=== PATIENT | male | born 1965 | race African-American/Black ===

== ENCOUNTER 2017-02-15 10:57 | Emergency (ER) | payer SELFPAY ==
[2017-02-15] MEDS ORDERED: Naproxen 500 MG TAB ONE (13:49)
[2017-02-15] MEDS ORDERED: AMOXicillin 250 MG CAP ONE (13:49)
[2017-02-15] MEDS ORDERED: Oxymetazoline HCl 0.05% ( 15 ML ) ONE (13:49)
== END 2017-02-15 13:55 | disposition home or self-care (01) ==
LOC: MADERS 10:57
DX: J01.90 Acute sinusitis, unspecified (principal); B19.20 Unspecified viral hepatitis C without hepatic coma; I10 Essential (primary) hypertension; M19.90 Unspecified osteoarthritis, unspecified site; F17.210 Nicotine dependence, cigarettes, uncomplicated; G56.00 Carpal tunnel syndrome, unspecified upper limb; Z79.1 Long term (current) use of non-steroidal anti-inflammatories (NSAID)
CPT/HCPCS: 99283

== ENCOUNTER 2017-05-06 15:17 | Emergency (ER) | payer SELFPAY | END 2017-05-06 16:11 | disposition home or self-care (01) | LOC: MADERS 15:17 | DX: M77.9 Enthesopathy, unspecified (principal); I10 Essential (primary) hypertension; F17.210 Nicotine dependence, cigarettes, uncomplicated | CPT/HCPCS: 99283 ==

== ENCOUNTER 2017-10-30 12:44 | Emergency (ER) | payer SELFPAY ==
[2017-10-30] MEDS ORDERED: Diazepam 5 MG TAB ONE (13:13)
[2017-10-30] MEDS ORDERED: Naproxen 500 MG TAB ONE (13:13)
[2017-10-30] MEDS ORDERED: HYDROcodone/Acetaminophen 10/325 mg Tablet ONE (13:13)
--- NOTE | 2017-10-30 13:33 | RAD ---
TWO VIEWS RIGHT HIP: HISTORY: Right hip pain without trauma. AP and frogleg views right hip were obtained. Two views right hip demonstrate no evidence of right hip fractures, subluxations, or bony lesions. IMPRESSION: Normal 2 views right hip. POS: [facility]
== END 2017-10-30 13:56 | disposition home or self-care (01) ==
LOC: MADERS 12:44
DX: M62.838 Other muscle spasm (principal); I10 Essential (primary) hypertension; M19.90 Unspecified osteoarthritis, unspecified site; Z86.19 Personal history of other infectious and parasitic diseases; F17.210 Nicotine dependence, cigarettes, uncomplicated

== ENCOUNTER 2017-11-01 00:07 | Emergency (ER) | payer SELFPAY ==
[2017-11-01] MEDS ORDERED: Ketorolac Tromethamine 60 MG/2 ML VIAL ONE (00:30)
[2017-11-01] MEDS ORDERED: HYDROcodone/Acetaminophen 10/325 mg Tablet ONE (00:30)
== END 2017-11-01 00:54 | disposition home or self-care (01) ==
LOC: MADERS 00:07
DX: M54.5 Low back pain (principal); I10 Essential (primary) hypertension; G89.29 Other chronic pain; B19.20 Unspecified viral hepatitis C without hepatic coma; M19.90 Unspecified osteoarthritis, unspecified site; F17.210 Nicotine dependence, cigarettes, uncomplicated
CPT/HCPCS: 96372; J1885

== ENCOUNTER 2017-11-06 09:42 | Emergency (ER) | payer SELFPAY | END 2017-11-06 12:57 | disposition home or self-care (01) | LOC: MADERS 09:42 | DX: M79.661 Pain in right lower leg (principal); M19.90 Unspecified osteoarthritis, unspecified site; I10 Essential (primary) hypertension; G89.29 Other chronic pain; F17.210 Nicotine dependence, cigarettes, uncomplicated | CPT/HCPCS: 99283 ==

== ENCOUNTER 2018-03-30 08:40 | Emergency (ER) | payer SELFPAY ==
[2018-03-30] MEDS ORDERED: Lidocaine 1% w/Epinephrine 1:100K 30 ML VIAL ONE (09:05)
== END 2018-03-30 09:25 | disposition home or self-care (01) ==
LOC: MADERS 08:40
DX: L05.91 Pilonidal cyst without abscess (principal); I10 Essential (primary) hypertension; F41.9 Anxiety disorder, unspecified; F31.9 Bipolar disorder, unspecified; F20.9 Schizophrenia, unspecified; F17.210 Nicotine dependence, cigarettes, uncomplicated
CPT/HCPCS: J2001

== ENCOUNTER 2018-05-30 23:17 | Emergency (ER) | payer SELFPAY ==
[2018-05-30] MEDS ORDERED: Sodium Chloride 0.9% 1,000 ML ONE (23:41)
[2018-05-30 23:49] LABS: #Basophils 0.2 thou/uL (0.0-0.2); #Eosinphils 0.2 thou/uL (0.0-0.7); #Lymphocytes 3.2 thou/uL (1.20-3.40); #Monocytes 0.4 thou/uL (0.11-0.59); #Neutrophils 3.3 thou/uL (1.40-6.50); %Basophils 2.7 % (0.0-1.0); %Eosinophils 3.3 % (0.0-10.0); %Lymphocytes 43.4 % (21.0-51.0); %Neutrophils 44.6 % (42.0-75.0); Hemoglobin 13.4 g/dL (14.0-18.0); Mean Corpuscular HGB CONC 32.9 g/dL (32.0-36.0); Mean Corpuscular Volume 88.3 fL (78.0-98.0); Mean Platelet Volume 7.2 fL (7.4-10.4); Platelet Count 237 thou/uL (130-400); RBC Distribution Width 11.6 % (11.5-14.5); Red Blood Cell (RBC) Count 4.61 mill/uL (4.70-6.10); White Blood Cell (WBC) Count 7.3 thou/uL (4.8-10.8)
[2018-05-30 23:51] LABS: Manual Diff?? NO
[2018-05-31 00:03] LABS: ALT (SGPT) 24 U/L (8-55); AST (SGOT) 27 U/L (5-34); Albumin 3.7 g/dL (3.5-5.0); Alcohol 208 mg/dL (Less than 10); Alkaline Phosphatase 53 U/L (40-150); Anion Gap 19 mmol/L (10-20); BUN (Urea Nitrogen) 25 mg/dL (8.4-25.7); Bilirubin, Total 0.2 mg/dL (0.2-1.2); Calc. Creatinine Clearance 0 mL/min (70-130); Calcium 9.1 mg/dL (7.8-10.44); Carbon Dioxide 19 mmol/L (22-29); Chloride 111 mmol/L (98-107); Estimated GFR-MDRD 61; Globulin 2.5 g/dL (2.4-3.5); Glucose 111 mg/dL (70-105); Potassium 3.8 mmol/L (3.5-5.1); Protein, Total 6.2 g/dL (6.0-8.3); Sodium 145 mmol/L (136-145)
--- NOTE | 2018-05-31 00:04 | RAD ---
PORTABLE CHEST: 05/30/2018 PROVIDED CLINICAL HISTORY: FINDINGS: Chest pain. COMPARISON: 04/08/2013 FINDINGS: Cardiac and mediastinal silhouette are unchanged in appearance with situs inversus redemonstrated. N o focal consolidation, pleural fluid, or pneumothorax apparent. IMPRESSION: No evidence for an acute cardiopulmonary process. POS: [facility]
== END 2018-05-31 01:25 | disposition home or self-care (01) ==
LOC: MADERS 23:17
DX: F10.129 Alcohol abuse with intoxication, unspecified (principal); R07.9 Chest pain, unspecified; I10 Essential (primary) hypertension; M19.90 Unspecified osteoarthritis, unspecified site; F41.9 Anxiety disorder, unspecified; F31.9 Bipolar disorder, unspecified; F20.9 Schizophrenia, unspecified; F17.210 Nicotine dependence, cigarettes, uncomplicated; Z71.6 Tobacco abuse counseling; Y90.7 Blood alcohol level of 200-239 mg/100 ml
CPT/HCPCS: 71045; 80053; 80307; 84484; 85025; 93005; 94760; 96360; 96361; 99406; J7050

== ENCOUNTER 2018-12-25 11:32 | Emergency (ER) | payer SELFPAY ==
[2018-12-25] MEDS ORDERED: HyperTET 250 UNITS/ML 1 ML SYRINGE ONE (11:53)
[2018-12-25] MEDS ORDERED: Ibuprofen 800 MG TAB ONE (11:53)
[2018-12-25] MEDS ORDERED: Penicillin V Potassium 250 MG TAB ONE (11:53)
== END 2018-12-25 12:01 | disposition home or self-care (01) ==
LOC: MADERS 11:32
DX: K02.9 Dental caries, unspecified (principal); K74.60 Unspecified cirrhosis of liver; F41.9 Anxiety disorder, unspecified; F31.9 Bipolar disorder, unspecified; F20.9 Schizophrenia, unspecified; I10 Essential (primary) hypertension; M19.90 Unspecified osteoarthritis, unspecified site; F17.210 Nicotine dependence, cigarettes, uncomplicated; Z71.6 Tobacco abuse counseling
CPT/HCPCS: 99406; J1670

== ENCOUNTER 2019-04-07 22:12 | Emergency (ER) | payer SELFPAY ==
[2019-04-07] MEDS ORDERED: Cyclobenzaprine 10 MG TAB ONE (22:47)
[2019-04-07] MEDS ORDERED: Ibuprofen 800 MG TAB ONE (22:47)
== END 2019-04-07 23:05 | disposition home or self-care (01) ==
LOC: MADERS 22:12
DX: M62.830 Muscle spasm of back (principal); I10 Essential (primary) hypertension; M19.90 Unspecified osteoarthritis, unspecified site; F17.210 Nicotine dependence, cigarettes, uncomplicated; W18.30XA Fall on same level, unspecified, initial encounter
CPT/HCPCS: 99283

== ENCOUNTER 2019-05-17 22:56 | Emergency (ER) | payer SELFPAY ==
[2019-05-17 23:55] LABS: Band 1 % (5-11); Eosinophils 3 % (0-10); Hemoglobin 12.9 g/dL (14.0-18.0); Lymphocytes 44 % (21-51); MDiff Complete? YES; Mean Corpuscular HGB CONC 31.2 g/dL (32.0-36.0); Mean Corpuscular Hemoglobin 28.6 pg (27.0-31.0); Mean Corpuscular Volume 91.6 fL (78.0-98.0); Mean Platelet Volume 7.4 fL (7.4-10.4); Monocytes 4 % (0-10); Neutrophil 48 % (42-75); Platelet Count 252 thou/uL (130-400); RBC Distribution Width 12.3 % (11.5-14.5); Red Blood Cell (RBC) Count 4.51 mill/uL (4.70-6.10); White Blood Cell (WBC) Count 7.4 thou/uL (4.8-10.8)
[2019-05-18 00:02] LABS: ALT (SGPT) 25 U/L (8-55); AST (SGOT) 26 U/L (5-34); Albumin 3.5 g/dL (3.5-5.0); Alkaline Phosphatase 50 U/L (40-110); Anion Gap 15 mmol/L (10-20); BUN (Urea Nitrogen) 18 mg/dL (8.4-25.7); Bilirubin, Total Less than 0.2 mg/dL (0.2-1.2); Calc. Creatinine Clearance 0 mL/min (70-130); Calcium 8.1 mg/dL (7.8-10.44); Carbon Dioxide 21 mmol/L (22-29); Chloride 114 mmol/L (98-107); Estimated GFR-MDRD 62; Globulin 2.6 g/dL (2.4-3.5); Glucose 96 mg/dL (70-105); Magnesium 2.1 mg/dL (1.6-2.6); Potassium 3.8 mmol/L (3.5-5.1); Protein, Total 6.1 g/dL (6.0-8.3); Sodium 146 mmol/L (136-145)
--- NOTE | 2019-05-18 00:02 | RAD ---
EXAM: CHEST ONE VIEW HISTORY: Chest pain COMPARISON: 05/30/2018 FINDINGS: Cardiac silhouette is within normal limits with situs inversus redemonstrated. The pulmonary vasculat ure is within normal limits. The lungs are clear. Degenerative changes are again seen in the spine. Chest is stable from prior exam. IMPRESSION: No acute cardiopulmonary process.
[2019-05-18 00:04] LABS: Acetaminophen Less than 6.0 mcg/mL (10.0-30.0); Alcohol 146 mg/dL (Less than 10); Salicylate Less than 8.0 mg/dL (15.0-30.0)
[2019-05-18] MEDS ORDERED: Sodium Chloride 0.9% 500 ML ONE (00:12)
[2019-05-18 01:13] LABS: Cocaine Metabolite Screen Detected (NotDetected); Phencyclidine (PCP) Not Detected (NotDetected); THC/Cannabinoid Screen Not Detected (NotDetected)
[2019-05-18 01:14] LABS: Amphetamine Not Detected (NotDetected); Barbiturates Screen Not Detected (NotDetected); Benzodiazepine Screen Not Detected (NotDetected); Medtox Control Line Valid? VALID (VALID); Methadone Not Detected (NotDetected); Methamphetamine Not Detected (NotDetected); Opiate Screen Not Detected (NotDetected); Oxycodone Screen Not Detected (NotDetected); Tricyclic Screen Not Detected (NotDetected)
== END 2019-05-18 02:52 | disposition short-term general hospital (02) ==
LOC: MADERS 22:56
DX: R07.9 Chest pain, unspecified (principal); E87.1 Hypo-osmolality and hyponatremia; F10.129 Alcohol abuse with intoxication, unspecified; F14.10 Cocaine abuse, uncomplicated; F31.9 Bipolar disorder, unspecified; F20.9 Schizophrenia, unspecified; F41.9 Anxiety disorder, unspecified; F17.210 Nicotine dependence, cigarettes, uncomplicated; K74.60 Unspecified cirrhosis of liver; M19.90 Unspecified osteoarthritis, unspecified site; Z86.19 Personal history of other infectious and parasitic diseases; Y90.6 Blood alcohol level of 120-199 mg/100 ml
CPT/HCPCS: 36415; 71045; 80053; 80306; 80307; 82553; 83735; 83880; 84484; 85025; 93005; 96360; J7050

== ENCOUNTER 2019-06-18 07:19 | Emergency (ER) | payer SELFPAY ==
[2019-06-18] MEDS ORDERED: Ibuprofen 800 MG TAB ONE (08:14)
== END 2019-06-18 08:32 | disposition home or self-care (01) ==
LOC: MADERS 07:19
DX: J06.9 Acute upper respiratory infection, unspecified (principal); I10 Essential (primary) hypertension; M19.90 Unspecified osteoarthritis, unspecified site; F41.9 Anxiety disorder, unspecified; F31.9 Bipolar disorder, unspecified; F20.9 Schizophrenia, unspecified; F17.210 Nicotine dependence, cigarettes, uncomplicated; Z79.82 Long term (current) use of aspirin
CPT/HCPCS: 87081; 87430; 99283

== ENCOUNTER 2019-07-19 10:22 | Emergency (ER) | payer SELFPAY ==
[2019-07-19] MEDS ORDERED: Lidocaine 1% 20 ML MDV ONE (11:03)
[2019-07-19] MEDS ORDERED: cefTRIAXone\\ROCEPHIN 1 GM VIAL ONE (11:03)
== END 2019-07-19 11:25 | disposition home or self-care (01) ==
LOC: MADERS 10:22
DX: L03.114 Cellulitis of left upper limb (principal); L03.211 Cellulitis of face; K02.9 Dental caries, unspecified; I10 Essential (primary) hypertension; M19.90 Unspecified osteoarthritis, unspecified site; F41.9 Anxiety disorder, unspecified; F31.9 Bipolar disorder, unspecified; F20.9 Schizophrenia, unspecified; F17.210 Nicotine dependence, cigarettes, uncomplicated; Z79.82 Long term (current) use of aspirin
CPT/HCPCS: 96372; 99283; J0696; J2001

== ENCOUNTER 2019-09-03 14:30 | Emergency (ER) | payer SELFPAY | END 2019-09-03 15:28 | disposition short-term general hospital (02) | LOC: MADERS 14:30 | DX: M79.662 Pain in left lower leg (principal); F41.9 Anxiety disorder, unspecified; F31.9 Bipolar disorder, unspecified; K74.60 Unspecified cirrhosis of liver; F20.9 Schizophrenia, unspecified; F17.210 Nicotine dependence, cigarettes, uncomplicated; I10 Essential (primary) hypertension | CPT/HCPCS: 99284 ==

== ENCOUNTER 2019-12-22 10:43 | Emergency (ER) | payer SELFPAY | END 2019-12-22 11:31 | disposition home or self-care (01) | LOC: MADERS 10:43 | DX: L03.114 Cellulitis of left upper limb (principal); F41.9 Anxiety disorder, unspecified; F31.9 Bipolar disorder, unspecified; F20.9 Schizophrenia, unspecified; F17.210 Nicotine dependence, cigarettes, uncomplicated | CPT/HCPCS: 99283 ==

== ENCOUNTER 2020-02-04 03:09 | Emergency (ER) | payer SELFPAY ==
[2020-02-04] MEDS ORDERED: Ibuprofen 800 MG TAB ONE (03:30)
[2020-02-04] MEDS ORDERED: Dexamethasone 4 mg/ml Vial ONE (03:30)
[2020-02-04] MEDS ORDERED: AMOXicillin 250 MG CAP ONE (03:30)
[2020-02-04] MEDS ORDERED: Acetaminophen 500 MG TAB ONE (03:31)
== END 2020-02-04 03:54 | disposition home or self-care (01) ==
LOC: MADERS 03:09
DX: J02.0 Streptococcal pharyngitis (principal); K04.7 Periapical abscess without sinus; K02.9 Dental caries, unspecified; I10 Essential (primary) hypertension; M19.90 Unspecified osteoarthritis, unspecified site; F41.9 Anxiety disorder, unspecified; F31.9 Bipolar disorder, unspecified; F20.9 Schizophrenia, unspecified; F17.210 Nicotine dependence, cigarettes, uncomplicated; K74.60 Unspecified cirrhosis of liver
CPT/HCPCS: 99283; J1100

== ENCOUNTER 2020-04-24 12:39 | Emergency (ER) | payer SELFPAY ==
[2020-04-25 02:56] LABS: SARS-CoV-2 MS2 Positive; SARS-CoV-2 N Gene Positive; SARS-CoV-2 by NAA DETECTED (NotDetected); SARS-CoV-2 orf1ab Positive
== END 2020-04-24 13:50 | disposition home or self-care (01) ==
LOC: MADERS 12:39
DX: U07.1 COVID-19 (principal); I10 Essential (primary) hypertension; F17.210 Nicotine dependence, cigarettes, uncomplicated
CPT/HCPCS: 87635; 99283; U0003

== ENCOUNTER 2020-08-25 15:01 | Emergency (ER) | payer SELFPAY ==
[2020-08-25] MEDS ORDERED: Sodium Chloride 0.9% 1,000 ML ONE ×2 (15:50→18:27)
[2020-08-25 16:06] LABS: #Basophils 0.1 thou/uL (0.0-0.2); #Eosinphils 0.1 thou/uL (0.0-0.7); #Lymphocytes 1.4 thou/uL (1.20-3.40); #Monocytes 0.6 thou/uL (0.11-0.59); #Neutrophils 3.1 thou/uL (1.40-6.50); %Basophils 2.6 % (0.0-1.0); %Eosinophils 1.6 % (0.0-10.0); %Lymphocytes 25.8 % (21.0-51.0); %Monocytes 11.7 % (0.0-10.0); %Neutrophils 58.2 % (42.0-75.0); Mean Corpuscular HGB CONC 30.6 g/dL (32.0-36.0); Mean Corpuscular Hemoglobin 28.6 pg (27.0-31.0); Mean Corpuscular Volume 93.4 fL (78.0-98.0); Platelet Count 201 thou/uL (130-400); RBC Distribution Width 12.9 % (11.5-14.5); White Blood Cell (WBC) Count 5.2 thou/uL (4.8-10.8)
[2020-08-25 16:16] LABS: ALT (SGPT) 86 U/L (8-55); AST (SGOT) 98 U/L (5-34); Albumin 3.8 g/dL (3.5-5.0); Alkaline Phosphatase 81 U/L (40-110); Anion Gap 14 mmol/L (10-20); BUN (Urea Nitrogen) 15 mg/dL (8.4-25.7); Bilirubin, Total 0.3 mg/dL (0.2-1.2); CK (CPK) 287 U/L (30-200); Calc. Creatinine Clearance 0 mL/min (70-130); Calcium 8.6 mg/dL (7.8-10.44); Carbon Dioxide 24 mmol/L (22-29); Chloride 108 mmol/L (98-107); Globulin 2.7 g/dL (2.4-3.5); Glucose 123 mg/dL (70-105); Potassium 3.8 mmol/L (3.5-5.1); Protein, Total 6.5 g/dL (6.0-8.3); Sodium 142 mmol/L (136-145)
[2020-08-25 16:33] LABS: CKMB 3.3 ng/mL (0-6.6)
[2020-08-25 16:40] LABS: INR-International Normal Ratio 0.9; PTT 26.7 sec (22.9-36.1); Prothrombin Time 11.8 sec (12.0-14.7)
[2020-08-25] MEDS ORDERED: Aspirin Chewable 81 MG TAB ONE (16:58)
[2020-08-25 17:51] LABS: Bilirubin Negative (Negative); Blood, Urine Negative (Negative); Clarity Clear (Clear); Glucose, Urine (Dipstick) Negative (Negative); Ketone, Urine Negative (Negative); Leukocyte Negative (Negative); Nitrite Negative (Negative); Protein, Urine (Dipstick) Negative (Neg-Trace); Urobilinogen 0.2 mg/dL (Less than 2); pH, Urine 5.5 (5.0-9.0)
[2020-08-25 18:10] LABS: Amphetamine Not Detected (NotDetected); Barbiturates Screen Not Detected (NotDetected); Benzodiazepine Screen Not Detected (NotDetected); Cocaine Metabolite Screen Detected (NotDetected); Medtox Control Line Valid? VALID (VALID); Methadone Not Detected (NotDetected); Methamphetamine Not Detected (NotDetected); Opiate Screen Not Detected (NotDetected); Oxycodone Screen Not Detected (NotDetected); Phencyclidine (PCP) Not Detected (NotDetected); THC/Cannabinoid Screen Not Detected (NotDetected); Tricyclic Screen Not Detected (NotDetected)
[2020-08-25] MEDS ORDERED: Acetaminophen 500 MG TAB ONE (19:25)
[2020-08-25 19:59] LABS: SARS-CoV-2 NAA Rapid Test Not Detected (NotDetected)
== END 2020-08-25 20:33 | disposition short-term general hospital (02) ==
LOC: MADERS 15:01
DX: R41.82 Altered mental status, unspecified (principal); F14.10 Cocaine abuse, uncomplicated; F10.10 Alcohol abuse, uncomplicated; R79.89 Other specified abnormal findings of blood chemistry; R26.9 Unspecified abnormalities of gait and mobility; R42 Dizziness and giddiness; R51.9 Headache, unspecified; R00.0 Tachycardia, unspecified; R53.83 Other fatigue; I10 Essential (primary) hypertension; M19.90 Unspecified osteoarthritis, unspecified site; K74.60 Unspecified cirrhosis of liver; F17.210 Nicotine dependence, cigarettes, uncomplicated; Y90.0 Blood alcohol level of less than 20 mg/100 ml
CPT/HCPCS: 0240U; 36415; 70450; 71045; 80053; 80306; 80307; 81003; 82550; 82553; 84484; 85025; 85610; 85730; 93005; 94760; J7050

== ENCOUNTER 2021-03-06 12:01 | Emergency (ER) | payer SELFPAY ==
[2021-03-06] MEDS ORDERED: Boostrix 0.5 ML (Tdap) VIAL ONE (12:19)
[2021-03-06] MEDS ORDERED: Ibuprofen 800 MG TAB ONE (12:19)
== END 2021-03-06 12:35 | disposition home or self-care (01) ==
LOC: MADERS 12:01
DX: S91.332A Puncture wound without foreign body, left foot, initial encounter (principal); R00.0 Tachycardia, unspecified; I10 Essential (primary) hypertension; M19.90 Unspecified osteoarthritis, unspecified site; F17.210 Nicotine dependence, cigarettes, uncomplicated; W45.0XXA Nail entering through skin, initial encounter
CPT/HCPCS: 90471; 90715; 99283

== ENCOUNTER 2021-12-27 08:54 | Emergency (ER) | payer BC ==
[2021-12-27] MEDS ORDERED: Acetaminophen 500 MG TAB ONE (09:34)
[2021-12-27] MEDS ORDERED: Cephalexin 250 MG CAP ONE (09:34)
[2021-12-27] MEDS ORDERED: predniSONE 20 MG TAB ONE (09:34)
== END 2021-12-27 09:43 | disposition home or self-care (01) ==
LOC: MADERS 08:54
DX: S50.821A Blister (nonthermal) of right forearm, initial encounter (principal); L23.7 Allergic contact dermatitis due to plants, except food; L03.113 Cellulitis of right upper limb; R51.9 Headache, unspecified; I10 Essential (primary) hypertension; M19.90 Unspecified osteoarthritis, unspecified site; X58.XXXA Exposure to other specified factors, initial encounter; Y93.H2 Activity, gardening and landscaping; Y92.096 Garden or yard of other non-institutional residence as the place of occurrence of the external cause
CPT/HCPCS: 36416; 99284; J7512

== ENCOUNTER 2022-02-02 16:10 | Emergency (ER) | payer BC ==
[2022-02-02] MEDS ORDERED: Bacitracin 1 PK ONE (17:15)
== END 2022-02-02 17:25 | disposition home or self-care (01) ==
LOC: MADERS 16:10
DX: T24.211A Burn of second degree of right thigh, initial encounter (principal); T31.0 Burns involving less than 10% of body surface; S80.11XA Contusion of right lower leg, initial encounter; I10 Essential (primary) hypertension; M19.90 Unspecified osteoarthritis, unspecified site; X12.XXXA Contact with other hot fluids, initial encounter
CPT/HCPCS: 99283

== ENCOUNTER 2022-03-04 16:16 | Emergency (ER) | payer OTHER, BC ==
[2022-03-04] MEDS ORDERED: Acetaminophen 500 MG TAB ONE (17:59)
== END 2022-03-04 18:13 | disposition home or self-care (01) ==
LOC: MADERS 16:16
DX: S46.811A Strain of other muscles, fascia and tendons at shoulder and upper arm level, right arm, initial encounter (principal); I10 Essential (primary) hypertension; M19.90 Unspecified osteoarthritis, unspecified site; W22.8XXA Striking against or struck by other objects, initial encounter; Y92.69 Other specified industrial and construction area as the place of occurrence of the external cause
CPT/HCPCS: 72125

== ENCOUNTER 2022-09-13 16:48 | Emergency (ER) | payer BC, SELFPAY ==
[2022-09-13 17:23] LABS: #Basophils 0.1 thou/uL (0.0-0.2); #Eosinphils 0.3 thou/uL (0.0-0.7); #Lymphocytes 2.1 thou/uL (1.20-3.40); #Monocytes 0.7 thou/uL (0.11-0.59); #Neutrophils 1.9 thou/uL (1.40-6.50); %Basophils 1.8 % (0.0-1.0); %Eosinophils 5.2 % (0.0-10.0); %Lymphocytes 42.5 % (21.0-51.0); %Monocytes 13.5 % (0.0-10.0); Hemoglobin 14.9 g/dL (14.0-18.0); Mean Corpuscular HGB CONC 31.4 g/dL (32.0-36.0); Mean Corpuscular Hemoglobin 29.1 pg (27.0-31.0); Mean Corpuscular Volume 92.8 fl (78.0-98.0); Mean Platelet Volume 8.6 fL (7.4-10.4); Platelet Count 189 10x3/uL (130-400); RBC Distribution Width 12.5 % (11.5-14.5); Red Blood Cell (RBC) Count 5.14 mill/uL (4.70-6.10)
[2022-09-13 17:42] LABS: ALT (SGPT) 91 U/L (8-55); AST (SGOT) 104 U/L (5-34); Albumin 3.7 g/dL (3.5-5.0); Alkaline Phosphatase 91 U/L (40-110); Anion Gap 14 mmol/L (10-20); BUN (Urea Nitrogen) 17 mg/dL (8.4-25.7); Bilirubin, Total 0.4 mg/dL (0.2-1.2); Calc. Creatinine Clearance 0 mL/min (70-130); Calcium 9.1 mg/dL (7.8-10.44); Carbon Dioxide 28 mmol/L (22-29); Chloride 102 mmol/L (98-107); Estimated GFR 68; Glucose 121 mg/dL (70-105); Lipase 46 U/L (8-78); Potassium 4.5 mmol/L (3.5-5.1); Protein, Total 6.7 g/dL (6.0-8.3); Sodium 139 mmol/L (136-145)
[2022-09-13] MEDS ORDERED: Ketorolac Tromethamine 30 MG/ML VIAL ONE (18:25)
== END 2022-09-13 18:58 | disposition home or self-care (01) ==
LOC: MADERS 16:48
DX: R07.89 Other chest pain (principal); R10.9 Unspecified abdominal pain; I10 Essential (primary) hypertension
CPT/HCPCS: 36415; 71046; 80053; 83690; 83880; 84484; 85025; 93005; 94760; 96374; J1885

== ENCOUNTER 2022-12-21 15:06 | Emergency (ER) | payer SELFPAY ==
[~2022-12-21 15:06] MED LIST: Iopamidol 370 76% 100 ML VIAL ONE
== END 2022-12-21 19:01 | disposition home or self-care (01) ==
LOC: MADERS 15:06
DX: M79.661 Pain in right lower leg (principal)
CPT/HCPCS: Q9967

== ENCOUNTER 2023-07-17 18:25 | Emergency (ER) | payer OTHER, SELFPAY ==
[2023-07-17] MEDS ORDERED: Ketorolac Tromethamine 10 MG TAB ONE (20:26)
== END 2023-07-17 20:33 | disposition home or self-care (01) ==
LOC: MADERS 18:25
DX: S90.32XA Contusion of left foot, initial encounter (principal); F17.210 Nicotine dependence, cigarettes, uncomplicated; X58.XXXA Exposure to other specified factors, initial encounter

== ENCOUNTER 2023-12-30 10:29 | Emergency (ER) | payer OTHER, SELFPAY ==
[2023-12-30] MEDS ORDERED: Morphine 4 MG/ML VIAL ONE (11:16)
[2023-12-30] MEDS ORDERED: Ondansetron PF 4 MG/2 ML Vial ONE (11:16)
[2023-12-30] MEDS ORDERED: Lactated Ringer's 1,000 ML ONE (11:16)
[2023-12-30 11:38] LABS: Bilirubin Small (Negative); Blood, Urine Negative (Negative); Clarity Clear (Clear); Glucose, Urine (Dipstick) Negative (Negative); Ketone, Urine Trace mg/dL (Negative); Leukocyte Negative (Negative); Nitrite Negative (Negative); Protein, Urine (Dipstick) Negative (Neg-Trace)
[2023-12-30 11:39] LABS: Specific Gravity, Urine 1.032 (1.002-1.036)
[2023-12-30 11:40] LABS: Sodium 140 mmol/L (136-145)
[2023-12-30 11:41] LABS: ALT (SGPT) 65 U/L (8-55); AST (SGOT) 44 U/L (5-34); Albumin 3.4 g/dL (3.5-5.0); Alkaline Phosphatase 88 U/L (40-110); Anion Gap 15 mmol/L (10-20); BUN (Urea Nitrogen) 21 mg/dL (8.4-25.7); Bilirubin, Total 0.3 mg/dL (0.2-1.2); Calc. Creatinine Clearance 0 mL/min (70-130); Calcium 8.7 mg/dL (7.8-10.44); Carbon Dioxide 20 mmol/L (22-29); Chloride 110 mmol/L (98-107); Estimated GFR 71; Glucose 198 mg/dL (70-105); Lipase 42 U/L (8-78); Potassium 4.6 mmol/L (3.5-5.1); Protein, Total 6.4 g/dL (6.0-8.3)
[2023-12-30 11:41] LABS: RBC/HPF 0-3 HPF (0-3)
[2023-12-30 11:42] LABS: Bacteria/HPF Rare-Few HPF (None Seen); CAUTI Indications for Culture Pelvic or flank pain; Squamous Epithelial 0-3 HPF (0-3); WBC/HPF 0-3 HPF (0-3)
[2023-12-30 11:43] LABS: Troponin I 0.026 ng/mL (< 0.028)
[2023-12-30 11:43] LABS: Urine Culture Reflex No No
[2023-12-30 11:49] LABS: Eosinophils 4 % (0-10); Lymphocytes 9 % (21-51); MDiff Complete? YES; Manual Diff?? YES; Mean Corpuscular HGB CONC 30.2 g/dL (32.0-36.0); Mean Corpuscular Hemoglobin 27.8 pg (27.0-31.0); Mean Corpuscular Volume 91.9 fl (78.0-98.0); Mean Platelet Volume 6.4 fL (7.4-10.4); Neutrophil 75 % (42-75); Platelet Count 202 10x3/uL (130-400); RBC Distribution Width 12.6 % (11.5-14.5); Reactive Lymphocytes 9 % (0-10); Red Blood Cell (RBC) Count 4.68 mill/uL (4.70-6.10); White Blood Cell (WBC) Count 6.3 10x3/uL (4.8-10.8)
[2023-12-30 11:51] LABS: Monocytes 3 % (0-10)
[2023-12-30 11:52] LABS: Platelet Adequacy Comment Appears Adequate
== END 2023-12-30 14:01 | disposition home or self-care (01) ==
LOC: MADERS 10:29
DX: K40.90 Unilateral inguinal hernia, without obstruction or gangrene, not specified as recurrent (principal); K55.069 Acute infarction of intestine, part and extent unspecified; M19.042 Primary osteoarthritis, left hand; R74.01 Elevation of levels of liver transaminase levels; Q89.3 Situs inversus; I10 Essential (primary) hypertension; F17.210 Nicotine dependence, cigarettes, uncomplicated
CPT/HCPCS: 71045; 74177; 80053; 81001; 83605; 83690; 84484; 85025; 93005; 94760; 96374; 96375; J2272; J2405; J7120; Q9967

== ENCOUNTER 2024-02-07 21:59 | Emergency (ER) | payer OTHER ==
[2024-02-07] MEDS ORDERED: Boostrix 0.5 ML (Tdap) VIAL (>/=7 yrs of age) ONE (22:21)
[2024-02-07] MEDS ORDERED: Lidocaine 1% (PF) 30 ML VIAL ONE (22:21)
[2024-02-07] MEDS ORDERED: Bacitracin 1 PK ONE (22:59)
[2024-02-07] MEDS ORDERED: Ibuprofen 800 MG TAB ONE (23:05)
[2024-02-07] MEDS ORDERED: HYDROcodone/Acetaminophen 5/325 mg Tablet ONE (23:05)
== END 2024-02-07 23:13 | disposition home or self-care (01) ==
LOC: EDBD 21:59 → MADERS 21:59
DX: S61.210A Laceration without foreign body of right index finger without damage to nail, initial encounter (principal); M19.041 Primary osteoarthritis, right hand; I10 Essential (primary) hypertension; F17.210 Nicotine dependence, cigarettes, uncomplicated; Z23 Encounter for immunization; W45.8XXA Other foreign body or object entering through skin, initial encounter
CPT/HCPCS: 12001; 90471; 90715; J2001

== ENCOUNTER 2024-02-11 08:20 | Emergency (ER) | payer OTHER ==
[2024-02-11] MEDS ORDERED: Iopamidol 370 76% 100 ML VIAL ONE (09:00)
[2024-02-11] MEDS ORDERED: Sodium Chloride 0.9% 1,000 ML ONE (09:06)
[2024-02-11] MEDS ORDERED: Ketorolac Tromethamine 30 MG (1 mL) VIAL ONE (09:06)
[2024-02-11] MEDS ORDERED: Ondansetron PF 4 MG/2 ML Vial ONE (09:06)
[2024-02-11 09:22] LABS: #Basophils 0.1 thou/uL (0.0-0.2); #Eosinphils 0.2 thou/uL (0.0-0.7); #Lymphocytes 1.4 thou/uL (1.20-3.40); #Monocytes 0.5 thou/uL (0.11-0.59); #Neutrophils 1.6 thou/uL (1.40-6.50); %Basophils 2.2 % (0.0-1.0); %Eosinophils 5.9 % (0.0-10.0); %Lymphocytes 38.1 % (21.0-51.0); %Monocytes 12.8 % (0.0-10.0); Hematocrit 44.3 % (42.0-52.0); Hemoglobin 13.7 g/dL (14.0-18.0); Mean Corpuscular HGB CONC 30.9 g/dL (32.0-36.0); Mean Corpuscular Hemoglobin 28.4 pg (27.0-31.0); Mean Corpuscular Volume 91.9 fl (78.0-98.0); Mean Platelet Volume 7.5 fL (7.4-10.4); Platelet Count 206 10x3/uL (130-400); Red Blood Cell (RBC) Count 4.82 mill/uL (4.70-6.10); White Blood Cell (WBC) Count 3.8 10x3/uL (4.8-10.8)
[2024-02-11 09:25] LABS: ALT (SGPT) 59 U/L (8-55); AST (SGOT) 50 U/L (5-34); Albumin 3.2 g/dL (3.5-5.0); Alkaline Phosphatase 80 U/L (40-110); Anion Gap 14 mmol/L (10-20); BUN (Urea Nitrogen) 17 mg/dL (8.4-25.7); Bilirubin, Total 0.3 mg/dL (0.2-1.2); Calc. Creatinine Clearance 0 mL/min (70-130); Calcium 8.7 mg/dL (7.8-10.44); Carbon Dioxide 24 mmol/L (22-29); Chloride 108 mmol/L (98-107); Estimated GFR 87; Globulin 3.2 g/dL (2.4-3.5); Glucose 111 mg/dL (70-105); Potassium 4.2 mmol/L (3.5-5.1); Protein, Total 6.4 g/dL (6.0-8.3); Sodium 142 mmol/L (136-145)
[2024-02-11 10:29] LABS: Bilirubin Negative (Negative); Blood, Urine Negative (Negative); Clarity Clear (Clear); Glucose, Urine (Dipstick) Negative (Negative); Ketone, Urine Negative (Negative); Leukocyte Negative (Negative); Nitrite Negative (Negative); Protein, Urine (Dipstick) Negative (Neg-Trace); Specific Gravity, Urine 1.025 (1.005-1.030); Urobilinogen 0.2 mg/dL (Less than 2)
[2024-02-11 10:35] LABS: Bacteria/HPF Rare-Few HPF (None Seen); CAUTI Indications for Culture Dysuria,urgency,freq; Mucous/LPF 2+ LPF (<2+); RBC/HPF None Seen HPF (0-3); Urine Culture Reflex No No; WBC/HPF 0-3 HPF (0-3)
== END 2024-02-11 11:30 | disposition home or self-care (01) ==
LOC: MADERS 08:20
DX: R10.31 Right lower quadrant pain (principal); Z48.00 Encounter for change or removal of nonsurgical wound dressing; F17.210 Nicotine dependence, cigarettes, uncomplicated
CPT/HCPCS: 36415; 74177; 80053; 81001; 85025; 96374; 96375; J1885; J2405; J7030; Q9967

== ENCOUNTER 2024-02-14 17:32 | Emergency (ER) | payer OTHER | END 2024-02-14 18:20 | disposition home or self-care (01) | LOC: MADERS 17:32 | DX: S61.411D Laceration without foreign body of right hand, subsequent encounter (principal); I10 Essential (primary) hypertension; F17.210 Nicotine dependence, cigarettes, uncomplicated; W26.9XXD Contact with unspecified sharp object(s), subsequent encounter ==

== ENCOUNTER 2024-03-21 10:10 | Emergency (ER) | payer OTHER ==
[2024-03-21] MEDS ORDERED: Tetracaine 0.5% PF 4 ML BOT ONE (10:19)
[2024-03-21] MEDS ORDERED: Fluorescein Opthalmic Strip ONE (10:19)
== END 2024-03-21 10:43 | disposition home or self-care (01) ==
LOC: MADERS 10:10
DX: S05.01XA Injury of conjunctiva and corneal abrasion without foreign body, right eye, initial encounter (principal); H54.3 Unqualified visual loss, both eyes; I10 Essential (primary) hypertension; F17.210 Nicotine dependence, cigarettes, uncomplicated; W22.8XXA Striking against or struck by other objects, initial encounter
CPT/HCPCS: 99283

== ENCOUNTER 2024-04-12 17:34 | Emergency (ER) | payer OTHER | END 2024-04-12 18:40 | disposition left against medical advice (07) | LOC: MADERS 17:34 | DX: Z53.21 Procedure and treatment not carried out due to patient leaving prior to being seen by health care provider (principal) ==

== ENCOUNTER 2024-04-13 09:22 | Emergency (ER) | payer OTHER ==
[2024-04-13] MEDS ORDERED: Famotidine/PF 20 mg/2ml Vial ONE (09:55)
[2024-04-13] MEDS ORDERED: Acetaminophen 500 MG TAB ONE (09:55)
[2024-04-13] MEDS ORDERED: Ketorolac Tromethamine 30 MG (1 mL) VIAL ONE (09:55)
[2024-04-13 10:39] LABS: Prothrombin Time 12.9 sec (12.0-14.7)
[2024-04-13 10:40] LABS: PTT 30.3 sec (22.9-36.1)
[2024-04-13 10:42] LABS: D-Dimer Test 0.35 mcg/mL (0.27-0.43)
[2024-04-13 10:45] LABS: ALT (SGPT) 59 U/L (8-55); AST (SGOT) 83 U/L (5-34); Albumin 3.6 g/dL (3.5-5.0); Alkaline Phosphatase 70 U/L (40-110); Anion Gap 15 mmol/L (10-20); BUN (Urea Nitrogen) 17 mg/dL (8.4-25.7); Bilirubin, Total 0.5 mg/dL (0.2-1.2); Calc. Creatinine Clearance 0 mL/min (70-130); Calcium 8.6 mg/dL (7.8-10.44); Carbon Dioxide 24 mmol/L (22-29); Chloride 103 mmol/L (98-107); Estimated GFR 55; Globulin 3.2 g/dL (2.4-3.5); Glucose 86 mg/dL (70-105); Lipase 37 U/L (8-78); Magnesium 2.2 mg/dL (1.6-2.6); Potassium 3.9 mmol/L (3.5-5.1); Protein, Total 6.8 g/dL (6.0-8.3); Sodium 138 mmol/L (136-145)
[2024-04-13 10:46] LABS: Troponin I 0.012 ng/mL (< 0.028)
[2024-04-13 10:53] LABS: Hematocrit 43.6 % (42.0-52.0); Hemoglobin 13.6 g/dL (14.0-18.0); Mean Corpuscular HGB CONC 31.2 g/dL (32.0-36.0); Mean Corpuscular Hemoglobin 27.9 pg (27.0-31.0); Mean Corpuscular Volume 89.3 fl (78.0-98.0); Platelet Count 162 10x3/uL (130-400); RBC Distribution Width 11.9 % (11.5-14.5); Red Blood Cell (RBC) Count 4.88 mill/uL (4.70-6.10); White Blood Cell (WBC) Count 3.8 10x3/uL (4.8-10.8)
[2024-04-13 10:54] LABS: Anisocytosis SLIGHT = 6-15 cells (100X) (0-5/hpf); Band 13 % (5-11); Eosinophils 2 % (0-10); Hypochromia SLIGHT = 6-15 cells (100X) (0-5/hpf); Lymphocytes 34 % (21-51); MDiff Complete? YES; Monocytes 13 % (0-10); Neutrophil 29 % (42-75); Platelet Adequacy Comment Appears Adequate
[2024-04-13 11:09] LABS: Bilirubin Small (Negative); Blood, Urine Negative (Negative); Glucose, Urine (Dipstick) Negative (Negative); Ketone, Urine Trace mg/dL (Negative); Leukocyte Negative (Negative); Nitrite Negative (Negative); Protein, Urine (Dipstick) Trace mg/dL (Neg-Trace); pH, Urine 5.5 (5.0-9.0)
[2024-04-13 11:15] LABS: Bacteria/HPF 1+ HPF (None Seen); CAUTI Indications for Culture Dysuria,urgency,freq; Clarity Hazy (Clear); RBC/HPF 0-3 HPF (0-3); Specific Gravity, Urine 1.025 (1.002-1.036); WBC/HPF 0-3 HPF (0-3)
[2024-04-13 11:16] LABS: Amphetamine Not Detected (NotDetected); Barbiturates Screen Not Detected (NotDetected); Benzodiazepine Screen Not Detected (NotDetected); Cocaine Metabolite Screen Detected (NotDetected); Methadone Not Detected (NotDetected); Methamphetamine Not Detected (NotDetected); Opiate Screen Not Detected (NotDetected); Oxycodone Screen Not Detected (NotDetected); Phencyclidine (PCP) Not Detected (NotDetected); THC/Cannabinoid Screen Not Detected (NotDetected); Tricyclic Screen Not Detected (NotDetected); Urine Culture Reflex No No
== END 2024-04-13 12:20 | disposition home or self-care (01) ==
LOC: MADERS 09:22
DX: R10.9 Unspecified abdominal pain (principal); J06.9 Acute upper respiratory infection, unspecified; F17.210 Nicotine dependence, cigarettes, uncomplicated
CPT/HCPCS: 71046; 74177; 80053; 80306; 81001; 83605; 83690; 83735; 84484; 85025; 85379; 85610; 85730; 87040; 87400; 87426; 93005; 94760; 96374; 96375; J1885; J3490

== ENCOUNTER 2024-09-14 11:01 | Emergency (ER) | payer OTHER | END 2024-09-14 12:36 | disposition home or self-care (01) | LOC: MADERS 11:01 | DX: S01.81XD Laceration without foreign body of other part of head, subsequent encounter (principal); S06.0X0A Concussion without loss of consciousness, initial encounter; L02.01 Cutaneous abscess of face; K02.9 Dental caries, unspecified; Q79.4 Prune belly syndrome; Q28.3 Other malformations of cerebral vessels; I10 Essential (primary) hypertension; F17.210 Nicotine dependence, cigarettes, uncomplicated; W20.8XXA Other cause of strike by thrown, projected or falling object, initial encounter | CPT/HCPCS: 70450; 70486; 87070; 87077; 87186; 87205 ==

== ENCOUNTER 2025-01-20 20:01 | Emergency (ER) | payer BC, OTHER ==
[2025-01-20] MEDS ORDERED: Acetaminophen 500 MG TAB ONE (20:21)
[2025-01-20 21:54] LABS: #Basophils 0.1 thou/uL (0.0-0.2); #Eosinophils 0.3 thou/uL (0.0-0.7); #Lymphocytes 2.4 thou/uL (1.20-3.40); #Monocytes 0.6 thou/uL (0.11-0.59); #Neutrophils 2.7 thou/uL (1.40-6.50); %Basophils 1.5 % (0.0-1.0); %Eosinophils 5.0 % (0.0-10.0); %Lymphocytes 39.2 % (21.0-51.0); %Monocytes 10.4 % (0.0-10.0); %Neutrophils 43.8 % (42.0-75.0); Hematocrit 41.7 % (42.0-52.0); Hemoglobin 13.2 g/dL (14.0-18.0); Mean Corpuscular Hemoglobin 28.4 pg (27.0-31.0); Mean Corpuscular Volume 89.8 fl (78.0-98.0); Platelet Count 256 10x3/uL (130-400); Red Blood Cell (RBC) Count 4.64 mill/uL (4.70-6.10); White Blood Cell (WBC) Count 6.1 10x3/uL (4.8-10.8)
[2025-01-20 22:10] LABS: ALT (SGPT) 100 U/L (Less than 45); AST (SGOT) 116 U/L (11-34); Albumin 3.5 g/dL (3.1-4.5); Alkaline Phosphatase 86 U/L (40-110); Anion Gap 12 mmol/L (10-20); BUN (Urea Nitrogen) 22 mg/dL (8.4-25.7); Bilirubin, Total 0.2 mg/dL (0.3-1.2); Calc. Creatinine Clearance 0 mL/min (70-130); Calcium 8.6 mg/dL (7.8-10.44); Carbon Dioxide 22 mmol/L (22-29); Chloride 113 mmol/L (98-107); Globulin 3.3 g/dL (2.4-3.5); Glucose 115 mg/dL (70-105); Potassium 4.2 mmol/L (3.5-5.1); Sodium 143 mmol/L (136-145)
== END 2025-01-20 22:31 | disposition home or self-care (01) ==
LOC: MADERS 20:01
DX: S80.11XA Contusion of right lower leg, initial encounter (principal); L72.0 Epidermal cyst; R74.01 Elevation of levels of liver transaminase levels; I10 Essential (primary) hypertension; F17.210 Nicotine dependence, cigarettes, uncomplicated; W20.8XXA Other cause of strike by thrown, projected or falling object, initial encounter
CPT/HCPCS: 36415; 70486; 80053; 85025; 86140